=== PATIENT | female | born 1940 ===

== ENCOUNTER 2017-06-21 07:02 | Day surgery (SDC) | payer MEDICARE ==
[2017-06-18 09:55] VITALS: BMI 18.9
--- NOTE | 2017-06-19 02:06 | HP ---
REASON FOR ADMISSION: Abnormal stress test and chest pain. BRIEF CLINICAL HISTORY: This is a 76-year-old female with past medical history significant for coronary artery disease, status post PTCA of LAD on 08/06/2011, status post permanent pacemaker sick sinus syndrome on 11/04/2015. Keep on complaining of chest pain and increasing dyspnea on exertion. Patient underwent a stress test that is abnormal, fixed defect, ejection fraction significantly decreased from 50% to 33% in this test, abnormal stress test. The patient is scheduled for elective cardiac cath, possible angioplasty. Patient has also 2 episodes of chest pain over the weekend, brought by the daughter. Patient is on Coumadin. PAST MEDICAL HISTORY: Significant for paroxysmal atrial fibrillation, diabetes, hypertension, hyperlipidemia, coronary artery disease, status post PTCA of LAD on 08/06/2011, status post pacemaker 11/04/2015, hypertension, hyperlipidemia. SOCIAL HISTORY: Denies any history of alcohol abuse. RECENT CARDIAC WORKUP: A stress test on 05/21/2017 - with ejection fraction 33% abnormal, fixed defect - apical and anterolateral which is new. Patient's echocardiography on 10/09/2016 - with ejection fraction of 50%, trace aortic regurgitation, moderate AR, mild to moderate TR. REVIEW OF SYSTEMS: As per HPI. ALLERGIES: NO KNOWN DRUG ALLERGIES. CURRENT MEDICATIONS: Patient is taking gabapentin (Neurontin) 100 mg p.o. b.i.d., dicyclomine 10 mg daily, vitamin B12 daily, atorvastatin daily, aspirin 81 mg daily, amiodarone 200 mg daily, Coumadin 5 mg daily, omeprazole 40 mg daily, tramadol 50 mg daily. PHYSICAL EXAMINATION: VITAL SIGNS: Height of the patient is 5 feet, weight of the patient 97 pounds, body mass index 18.9 kg/m2. Blood pressure 120/70, heart rate 62. HEENT: PERRLA intact. NECK: Supple. No carotid bruit or thyromegaly. CHEST: Clear to auscultation. HEART: S1 and S2 regular. ABDOMEN: Soft. EXTREMITIES: Clubbing, cyanosis are negative. LABORATORY DATA: Blood workup is pending. IMPRESSION: Sick sinus syndrome - status post permanent pacemaker on 11/04/2015, tachybrady syndrome, paroxysmal atrial fibrillation on Coumadin, history of coronary artery disease - status post percutaneous transluminal coronary angioplasty of left anterior descending artery on 08/06/2011, complaining of dyspnea on exertion, abnormal stress test - decreased left ventricular function, mitral regurgitation, tricuspid regurgitation. RECOMMENDATION: Recommending cardiac catheterization. Further recommendations after cardiac cath evaluation. Patient was on Coumadin, which is held since 5 days. We will check PT and INR. If acceptable, we will proceed for cardiac catheterization. Risks, benefits, and alternatives discussed with the patient. The patient agrees to proceed for cardiac catheterization. Further recommendations after cardiac catheterization. Bang Soto MD
[2017-06-21 08:16] LABS: BASO # 0.03 K/mm3 (0.0-2.0); BASO % 0.7 % (0.0-3.0); EOS # 0.1 (0.0-0.7); EOS % 1.4 % (1.5-5.0); GRAN # 2.82 (1.4-6.5); GRAN % 64.3 % (50.0-68.0); HEMOGLOBIN 12.1 g/dL (12.0-16.0); LYMPH # 0.9 (1.2-3.4); LYMPH % 21.5 % (22.0-35.0); MEAN CELL VOLUME 86.4 fl (80.0-105.0); MEAN CORPUSCULAR HEMOGLOBIN 27.4 pg (25.0-35.0); MEAN CORPUSCULAR HGB CONC 31.8 g/dl (31.0-37.0); MEAN PLATELET VOLUME 10.1 fl (7.0-11.0); MONO # 0.5 (0.1-0.6); MONO % 12.1 % (1.0-6.0); RBC 4.41 10^6/uL (3.5-6.1); RED CELL DISTRIBUTION WIDTH 17.3 % (11.5-14.5); WHITE BLOOD COUNT 4.4 10^3/ul (4.5-11.0)
[2017-06-21 08:23] VITALS: TEMP 97.8; O2SAT 99
[2017-06-21 08:26] LABS: CALCIUM 9.1 mg/dL (8.4-10.5)
[2017-06-21 08:29] LABS: INR 0.97 (0.93-1.08); PROTHROMBIN TIME 11.2 SECONDS (9.4-12.5)
[2017-06-21 08:30] LABS: PARTIAL THROMBOPLASTIN TIME 27.8 Seconds (25.1-36.5)
[2017-06-21] MEDS ORDERED: Lidocaine 2% Inj (20ml) ONE (09:09)
[2017-06-21] MEDS ORDERED: Iohexol 350mgl/ml 50 ML ONE (09:09)
[2017-06-21] MEDS ORDERED: Phenylephrine 10 mg/ml Inj ONE (09:09)
[2017-06-21] MEDS ORDERED: Iodixanol 320 MG/ML 200 ML BOTTLE IV ONE (09:09)
[2017-06-21] MEDS ORDERED: HEPARIN SODIUM/NS 2,000 ML IV ONE (09:10)
[2017-06-21] MEDS ORDERED: Midazolam 2 MG/2 ML VIAL ONE (09:34)
[2017-06-21] MEDS ORDERED: Eptifibatide 20 mg/10mL Inj IVP ONE (10:02)
[2017-06-21] MEDS ORDERED: Sodium Chloride 0.9% 1,000 ML IV SCH (10:45)
[2017-06-21 14:27] LABS: BASO # 0.02 K/mm3 (0.0-2.0); BASO % 0.5 % (0.0-3.0); EOS # 0.1 (0.0-0.7); EOS % 1.2 % (1.5-5.0); GRAN # 2.82 (1.4-6.5); GRAN % 66.1 % (50.0-68.0); HEMOGLOBIN 11.2 g/dL (12.0-16.0); LYMPH # 1.1 (1.2-3.4); LYMPH % 26.1 % (22.0-35.0); MEAN CELL VOLUME 85.9 fl (80.0-105.0); MEAN CORPUSCULAR HEMOGLOBIN 27.3 pg (25.0-35.0); MEAN CORPUSCULAR HGB CONC 31.8 g/dl (31.0-37.0); MEAN PLATELET VOLUME 9.8 fl (7.0-11.0); MONO # 0.3 (0.1-0.6); MONO % 6.1 % (1.0-6.0); RBC 4.1 10^6/uL (3.5-6.1); RED CELL DISTRIBUTION WIDTH 17.2 % (11.5-14.5); WHITE BLOOD COUNT 4.3 10^3/ul (4.5-11.0)
[2017-06-21 14:34] LABS: BLOOD UREA NITROGEN 18 mg/dL (7-21); CALCIUM 8.5 mg/dL (8.4-10.5); GFR AFRICAN-AMERICAN > 60; GFR NON-AFRICAN AMERICAN > 60
--- NOTE | 2017-06-21 15:30 | CARD ---
APPROVED REPORT Procedure(s) performed: Left Heart Catheterization PTCA with Stenting of Mid Circumflex with MARIO HISTORY 7 days), most recent EF: 33%. 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 INDICATION The indication(s) include : positive stress test, chest pain, dyspnea. CASE TECHNIQUE The patient was brought electively to the Cardiac Catheterization Laboratory in a fasting state and was prepped and draped in a sterile manner. The right femoral groin was infiltrated with 2% Lidocaine subcutaneous anesthesia. A 6 Fr x 11 cm Yaquelin sheath was inserted into the right femoral artery without difficulty. Coronary angiography was performed using coronary diagnostic catheters. The left coronary system was accessed and visualized with a Diagnostic ,6 Fr JL 3.5 catheter. The right coronary system was accessed and visualized with a Diagnostic ,6 Fr Performa JR 4 catheter. The left ventricle was accessed and visualized with a 6 Fr Pigtail catheter. Left ventricular/Aortic Valve gradient assessed on pullback. Left ventriculogram was performed in JASON projection. Closure device was deployed with a 6 Fr / 7 Fr MynxGrip without any complications. The patient tolerated the procedure well and there were no complications associated with the procedure. Vessel Analysis The patient's coronary anatomy is right dominant. The left main coronary artery is a medium size vessel with diffuse calcification noted throughout this vessel and without significant stenosis. The left main bifurcates to the left anterior descending and circumflex. The left anterior descending artery is a medium size vessel with diffuse calcification noted throughout this vessel and without significant stenosis. patent stent in Mid LAD The first diagonal branch is a small size vessel with diffuse calcification noted throughout this vessel and without significant stenosis. The second diagonal branch is a medium size vessel with diffuse calcification noted throughout this vessel and without significant stenosis. The circumflex artery is a medium size vessel with diffuse calcification noted throughout this vessel and with significant stenosis. There is a 80% stenosis in the mid segment. The first obtuse marginal branch is a small size vessel with diffuse calcification noted throughout this vessel and without significant stenosis. The second obtuse marginal branch is a small size vessel with diffuse calcification noted throughout this vessel and without significant stenosis. The right coronary artery is a large size vessel with diffuse calcification noted throughout this vessel and without significant stenosis. The right posterior descending artery is a medium size vessel with diffuse calcification noted throughout this vessel and without significant stenosis. The right posterolateral branch is a small size vessel with diffuse calcification noted throughout this vessel and without significant stenosis. Left Ventricle The left ventricle is borderline enlarged in size with moderately decreased contractility. Ischemic cardiomyopathy. The left ventricular ejection fraction is estimated to be 35%. The left ventricular end diastolic pressure is 10 mmHg. There was no gradient across the aortic valve upon pullback. PCI Technique Lesion Anticoagulation was achieved with Heparin. Percutaneous coronary intervention was performed on the mid circumflex artery segment. The lesion stenosis prior to intervention was 80% with SHERLEY 2 flow. A 6 Fr JL 3.5 Guide Catheter was used to engage the ostium. A [employer] 182 Interventional Guidewire was used to cross the lesion. BALLOON DILATION A Balloon catheter 2.0 x 12 mm Sprinter RX was inserted and inflated up to 8.00atm for 7seconds. STENT DEPLOYMENT A drug-eluting stent 2.75 x 18 mm Resolute MARIO was inserted and inflated up to 12.00atm for 13seconds. POST STENT DEPLOYMENT BALLOON DILATION A Balloon catheter 2.75 x 9 mm Sprinter NC was inserted and inflated up to 12.00atm for 15seconds. Final angiography reveals 0 % stenosis with SHERLEY 3 flow. Conclusion Single vessel CAD involving Mid Cx-80%. Patent stent in Mid LAD. Ischemic CMP-EF-35%.EDP-10 mmof Hg S/P PPM, PAF on Coumadin. Stopped Betsa jame...feels tired. Recommendations Aggressive Medical TherapyCardiac Risk Reduction Program Add plavix and coumadin (no Baby ASA). Add low dose Coreg/ Ramipril/Lasix/ Spironolactone/ Dig. Reassess LV Fx in 3-6 months,if EF remains <35, would consider upgrading PPM to AICD. PT/INR to be F/u with Dr. Villegas CC; Nurys Villegas
[2017-06-21 16:28] VITALS: RESP 18
--- NOTE | 2017-06-21 17:54 | CARD ---
APPROVED REPORT EKG Measurement Heart [id number] <Conclusion> Demand pacemaker, interpretation is based on intrinsic rhythm Junctional rhythm with premature ventricular complexes or fusion complexes ST & Marked T wave abnormality, consider anterolateral ischemia Prolonged QT Abnormal ECG
--- NOTE | 2017-06-21 18:10 | CARD ---
APPROVED REPORT EKG Measurement Heart [id number] [id number] <Conclusion> Demand pacemaker, interpretation is based on intrinsic rhythm Sinus bradycardia Left ventricular hypertrophy with repolarization abnormality Consider infero-lateral ischemia Prolonged QT Abnormal ECG
[2017-06-21 18:54] VITALS: BP 102/66; PULSE 60
--- NOTE | 2017-06-21 22:29 | CON ---
DATE: 06/21/2017 HISTORY OF PRESENT ILLNESS: The patient is a 76-year-old. The patient had a stress test done on 05/31/2017 that shows fixed anteroseptal apical and inferior defect and moderate LV dysfunction with diffuse hypokinesia that was new as compared to her stress test in 2013. So the patient was scheduled to have elective cardiac cath done today and being admitted for further observation. PAST MEDICAL HISTORY: She has significant past medical history for: 1. Paroxysmal atrial fibrillation. 2. Hypertension. 3. Coronary artery disease. 4. Kyphoscoliosis. 5. Gastritis. 6. History of renal artery thrombosis. 7. Coronary artery disease, status post PTCA of LAD in 2011. 8. Status post pacemaker placement because of bradycardia. SOCIAL HISTORY: She is , lives with her . Denies smoking, drinking, or alcohol use. ALLERGIES: SHE IS NOT ALLERGIC TO ANY MEDICATIONS. MEDICATIONS AT HOME: She is on Mobic, she is on omeprazole. She takes Coumadin 5 mg daily, Bentyl 10 mg q. 6 p.r.n., Neurontin 100 mg twice a day, amiodarone 200 daily, atorvastatin 40 mg daily, omeprazole 40 mg daily, tramadol 50 mg q. 6 p.r.n. REVIEW OF SYSTEMS: Significant for back pain, epigastric pain and weight loss. PHYSICAL EXAMINATION: GENERAL: She is awake, alert, oriented, communicative. VITAL SIGNS: She is afebrile, pulse 63, respirations 18, blood pressure 105/52. LUNGS: Bilateral good air flow. No rhonchi or crackle. HEART: S1 and S2 audible. ABDOMEN: Soft, nontender. No rebound, no guarding. NEUROLOGIC: She is awake, alert and oriented. Able to communicate. EXTREMITIES: Bilateral leg, no edema. Both feet are warm and she has significant kyphoscoliosis. LABORATORY DATA: WBC 4.4, hemoglobin 12, hematocrit 38, platelets 231. PT 11.2, INR 0.97. Chemistry: Sodium 142, potassium 4.3, chloride 108, CO2 of 25, BUN 21, creatinine 1.2, blood sugar of 96. ASSESSMENT: 1. Abnormal stress test. 2. Coronary artery disease, status post angioplasty of left anterior descending, status post angioplasty for circumflex. 3. Hypertension. 4. Atrial fibrillation. 5. Hyperlipidemia. 6. Gastritis. PLAN: The patient has been started on amiodarone. She will be given Coumadin and restarted on atorvastatin and Plavix. Her aspirin will be held for now and we will monitor her PT/INR. Марина Villegas MD
== END 2017-06-21 18:34 | disposition home or self-care (01) ==
LOC: CATH 07:02 → 2RSO 10:44 → CATH 18:34
PROVIDERS: ATTEND Internal Medicine Cardiovascular Disease
DX: I25.10 Atherosclerotic heart disease of native coronary artery without angina pectoris (principal); I10 Essential (primary) hypertension; I73.9 Peripheral vascular disease, unspecified; E78.5 Hyperlipidemia, unspecified; I48.0 Paroxysmal atrial fibrillation; Z79.01 Long term (current) use of anticoagulants; I25.5 Ischemic cardiomyopathy; M41.9 Scoliosis, unspecified; K29.70 Gastritis, unspecified, without bleeding; Z95.5 Presence of coronary angioplasty implant and graft; Z95.0 Presence of cardiac pacemaker
CPT/HCPCS: 36415; 80048; 85025; 85175; 85610; 85730; 86850; 86900; 93005; 93458; 99152; 99153; C1725 ×2; C1760; C1769 ×2; C1874; C1887 ×2; C2629; C9600; J1327; J1644 ×2; J2250; J3010; J7040 ×2; Q9967